=== PATIENT | male | born 1955 | race Caucasian/White ===

== ENCOUNTER → 2023-12-27 10:36 | Outpatient (CLI) | payer OTHER, SELFPAY ==
[2023-12-27 11:23] LABS: Influenza A - CEPHEID Flu A NEGATIVE (NEGATIVE); Influenza B - CEPHEID Flu B NEGATIVE (NEGATIVE); Respiratory Syncytial Virus Negative (Negative)
[2023-12-27 11:29] LABS: COVID-19 CEPHEID 4-PLEX PCR Negative (Negative)
== END ==
PROVIDERS: Visit Provider Physician Assistant
DX: R05.1 Acute cough (principal); J06.9 Acute upper respiratory infection, unspecified
CPT/HCPCS: 0241U